=== PATIENT | female | born 1990 | race African-American/Black ===

== ENCOUNTER 2017-10-11 14:13 | Emergency (ER) | payer MEDICAID ==
[~2017-10-11] VITALS: Ht 154.9 cm; Wt 45.4 kg
[2017-10-11] MEDS ORDERED: SODIUM CHLORIDE 0.9% 1,000 ML IV ONE (14:55)
[2017-10-11] MEDS ORDERED: KETOROLAC TROMETH 30 MG/ML 1ML VIAL IV ONE (15:00)
[2017-10-11 15:16] LABS: Urine Bacteria NONE SEEN /hpf (None Seen); Urine Blood Negative /uL (Negative); Urine Mucus FEW (None Seen); Urine Specific Gravity 1.025 (1.001-1.035); Urine WBC <1 /hpf (0 - 5)
[2017-10-11 16:30] VITALS: BP 110/74
[2017-10-11 17:08] LABS: Basophils # (auto) 0 uL; Basophils % (auto) 0.2 % (0.0-2.0); Eosinophils # (auto) 0 uL; Eosinophils % (auto) 0.1 % (0.0-7.0); Hematocrit 42.2 % (36.0-46.0); Hemoglobin 13.9 g/dL (12.2-16.2); Lymphocytes # (auto) 2.6 uL; Lymphocytes % (auto) 24.9 % (10.0-50.0); Mean Corpuscular Hemoglobin 29.5 pg (28.0-32.0); Mean Corpuscular Volume 89.5 fL (80.0-100.0); Monocytes # (auto) 0.5 uL; Monocytes % (auto) 5.1 % (0.0-12.0); Neutrophils # (auto) 7.1 uL; Neutrophils % (auto) 69.7 % (37.0-80.0); Nucleated Red Blood Cells % 0.1 %; Platelet Count (auto) 340 10^3/uL (140-450); Red Blood Cells 4.71 10^6/uL (4.0-5.20); Red Cell Distribution Width 13.4 % (11.8-14.3); White Blood Cell 10.2 10^3/uL (4.4-10.8)
[2017-10-11 17:17] LABS: Potassium 4.9 mmol/L (3.5-5.1)
[2017-10-11 17:19] LABS: Albumin 4.1 g/dL (3.4-5.0); BUN/Creatinine Ratio 10.1; Calcium 9.7 mg/dL (8.5-10.1)
[2017-10-11 17:25] LABS: Bilirubin, Total 0.7 mg/dL (0.2-1.0); Total Protein 8.9 g/dL (6.4-8.2)
== END 2017-10-11 17:37 | disposition home or self-care (01) ==
LOC: ER 14:13
DX: N83.209 Unspecified ovarian cyst, unspecified side (principal)
CPT/HCPCS: 36415; 74176; 80053; 81001; 81025; 85025; 96374; 99285; J1885

== ENCOUNTER 2018-11-30 14:33 | Emergency (ER) | payer MEDICAID ==
[~2018-11-30] VITALS: Ht 154.9 cm; Wt 52.2 kg
[2018-11-30 14:52] VITALS: BP 115/72
[2018-11-30 15:34] LABS: Urine Bacteria NONE SEEN /hpf (None Seen); Urine Blood Negative /uL (Negative); Urine Mucus FEW (None Seen); Urine Specific Gravity 1.035 (1.001-1.035); Urine WBC 13 /hpf (0 - 5)
[2018-11-30] MEDS ORDERED: cefTRIAXone SOD 1,000 MG VL IM ONE (16:15)
== END 2018-11-30 16:31 | disposition home or self-care (01) ==
LOC: ER 14:33
DX: O23.42 Unspecified infection of urinary tract in pregnancy, second trimester (principal); Z3A.16 16 weeks gestation of pregnancy
CPT/HCPCS: 36415; 81001; 81025; 84702; 96372; 99283; J0696

== ENCOUNTER 2019-01-22 16:58 | Emergency (ER) | payer MEDICAID ==
[~2019-01-22] VITALS: Ht 154.9 cm; Wt 59.0 kg
[2019-01-22 17:03] VITALS: BP 116/67
== END 2019-01-22 18:19 | disposition left against medical advice (07) ==
LOC: ER 16:58
DX: H92.01 Otalgia, right ear (principal); Z53.21 Procedure and treatment not carried out due to patient leaving prior to being seen by health care provider

== ENCOUNTER 2022-10-01 17:48 | Observation (INO) | payer MEDICAID ==
[~2022-10-01] VITALS: Ht 154.9 cm; Wt 58.1 kg
[2022-10-01 18:55] LABS: Urine Bacteria None Seen /hpf (None Seen)
[2022-10-01] MEDS ORDERED: PREN1TAB45 PO (19:10)
[2022-10-01 19:38] LABS: Urine Blood Negative /uL (Negative)
[2022-10-01 19:39] LABS: Urine Mucus FEW (None Seen); Urine WBC Clumps 0-2 /hpf (None Seen)
== END 2022-10-01 19:27 | disposition home or self-care (01) ==
LOC: LDRP 17:48
PROVIDERS: ADMIT Obstetrics & Gynecology; ATTEND Obstetrics & Gynecology
DX: O26.892 Other specified pregnancy related conditions, second trimester (principal); R10.9 Unspecified abdominal pain; O99.891 Other specified diseases and conditions complicating pregnancy; M54.9 Dorsalgia, unspecified; O26.872 Cervical shortening, second trimester; O09.212 Supervision of pregnancy with history of pre-term labor, second trimester; Z3A.20 20 weeks gestation of pregnancy
CPT/HCPCS: 59025; 81001; 94760; G0378

== ENCOUNTER 2023-06-17 12:50 | Emergency (ER) | payer MEDICAID ==
[~2023-06-17] VITALS: Ht 152.4 cm; Wt 52.2 kg
[~2023-06-17 12:50] MED LIST: PREN1TAB45 PO
[2023-06-17] MEDS ORDERED: PANTOPRAZOLE 40 MG TAB PO ONE (13:30)
[2023-06-17 13:35] VITALS: BP 105/74; PULSE 121; RESP 16; TEMP 97.1; O2SAT 100
[2023-06-17 14:09] LABS: Basophils # (auto) 0 10 ^3/uL (0-0.2); Basophils % (auto) 0.1 % (0.0-2.0); Eosinophils # (auto) 0 10 ^3/uL (0-0.8); Eosinophils % (auto) 0.1 % (0.0-7.0); Hematocrit 35.8 % (36.0-46.0); Hemoglobin 11.8 g/dL (12.2-16.2); Lymphocytes # (auto) 2.3 10 ^3/uL (0.4-5.4); Lymphocytes % (auto) 18.5 % (10.0-50.0); Mean Corpuscular Hemoglobin 28.7 pg (28.0-32.0); Mean Corpuscular Hgb Conc. 32.8 g/dL (32.0-36.0); Mean Corpuscular Volume 87.5 fL (80.0-100.0); Monocytes # (auto) 1.1 10 ^3/uL (0-1.3); Monocytes % (auto) 8.7 % (0.0-12.0); Neutrophils # (auto) 8.9 10 ^3/uL (1.6-8.6); Neutrophils % (auto) 72.6 % (37.0-80.0); Nucleated Red Blood Cells % 0.1 %; Red Blood Cells 4.09 10^6/uL (4.0-5.20); Red Cell Distribution Width 15.7 % (11.8-14.3); White Blood Cell 12.2 10^3/uL (4.4-10.8)
[2023-06-17 14:09] LABS: Urine Bacteria NONE SEEN /hpf (None Seen); Urine Blood 2+ /uL (Negative); Urine Clarity Clear (Clear); Urine Color Yellow (Yellow); Urine Mucus FEW (None Seen); Urine Protein, UAD Negative (Negative); Urine Specific Gravity 1.012 (1.001-1.035); Urine Urobilinogen Normal (Negative); Urine WBC 1 /hpf (0 - 5)
[2023-06-17 14:20] LABS: Chloride 105 mmol/L (98-107); Potassium 3.9 mmol/L (3.5-5.1); Sodium 138 mmol/L (136-145)
[2023-06-17 14:21] LABS: Anion Gap 7 (5-15); Carbon Dioxide 26 mmol/L (20-30)
[2023-06-17 14:22] LABS: Calcium 9.6 mg/dL (8.7-10.4)
[2023-06-17 14:26] LABS: Glucose 108 mg/dL (74-106)
[2023-06-17 14:27] LABS: BUN/Creatinine Ratio 11.1 (10.0-20.0); Blood Urea Nitrogen 9 mg/dL (9-23); Lipase 36 U/L (12-53)
[2023-06-17] MEDS ORDERED: HYDR-4902 PO (19:58)
[2023-06-17] MEDS ORDERED: TRAM50TA2 PO (20:23)
== END 2023-06-17 21:00 | disposition home or self-care (01) ==
LOC: ER 12:50
DX: N83.202 Unspecified ovarian cyst, left side (principal); R10.2 Pelvic and perineal pain; D72.829 Elevated white blood cell count, unspecified
CPT/HCPCS: 36415; 74176; 76705; 76856; 80048; 81001; 83690; 84702; 85025